=== PATIENT | male | born 1965 | race Caucasian/White ===

== ENCOUNTER 2021-03-13 13:36 | Emergency (ER) | payer MEDICAID, SELFPAY ==
[2021-03-13 15:09] VITALS: BP 139/92; PULSE 89; RESP 20; TEMP 36.6; O2SAT 98; BMI 25.1
--- NOTE | 2021-03-13 15:24 | XRR_ITS ---
PROCEDURE INFORMATION: Exam: XR Chest Exam date and time: 03/13/2021 3:24 PM Age: 55 years old Clinical indication: Cough and shortness of breath; Patient HX: Difficulty breathing and dry cough x 2 days; Additional info: SOB TECHNIQUE: Imaging protocol: XR of the chest. Views: 1 view. COMPARISON: CR Chest 2 views* [id number] 01/18/2018 10:38 AM FINDINGS: Lungs: Hyperinflated lungs. No focal consolidation. Pleural spaces: Unremarkable. No pleural effusion. No pneumothorax. Heart/Mediastinum: Unremarkable. No cardiomegaly. Bones/joints: Mild DJD of the right acromioclavicular joint. XR/XR chest 1V portable [id number] IMPRESSION: Hyperinflated lungs. Correlate for signs of obstructive lung disease. No focal consolidation.
--- NOTE | 2021-03-13 15:24 | ECG_ITS ---
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 Measurements Intervals [place] Rate: 73 P: 68 NV: 164 QRS: 66 QRSD: 122 T: 70 QT: 388 QTc: 428 Interpretive Statements SINUS RHYTHM POSSIBLE LEFT ATRIAL ENLARGEMENT [-0.1mV P WAVE IN V1/V2] PROBABLE LATERAL MYOCARDIAL INFARCTION [35 ms Q WAVE IN I/aVL/V5/V6], OF INDETERMINATE AGE Compared to ECG 01/18/2018 10:26:21 No significant changes Electronically Signed On 03-13-2021 17:03:37 CDT by Ramy David M.D. [email or web address]
[2021-03-13 15:55] LABS: Basophils # 0.1 10^3/uL (0.0-0.1); Basophils % 0.8 %; Eosinophils # 0.2 10^3/uL (0.0-0.8); Hematocrit 48.5 % (42.0-52.0); Hemoglobin 16.6 g/dL (11.7-16.6); Lymphocytes # 3.6 10^3/uL (0.8-4.8); Lymphocytes % 32.9 %; Mean Corpuscular HGB Conc 34.2 g/dL (30.0-36.0); Mean Corpuscular Hemoglobin 30.2 pg (28.0-34.0); Mean Corpuscular Volume 88.3 fL (80-94); Mean Platelet Volume 9.7 fL (7.4-10.4); Monocytes # 0.9 10^3/uL (0.2-0.9); Monocytes % 7.9 %; Neutrophils # 6.13 10^3/uL (1.8-7.7); Nucleated Red Blood Cells % 0 %; Platelet Count 281 10^3/cmm (130-400); Red Blood Count 5.49 10^6/uL (4.1-5.3); Red Cell Distribution Width 13.2 % (12.1-15.1); White Blood Count 10.9 10^3/uL (4.0-10.0)
[2021-03-13 16:13] LABS: SARS Covid-2 Antigen Negative (Negative)
[2021-03-13 16:19] LABS: Troponin(5th) Baseline 6 ng/L (0-15)
[2021-03-13 16:26] LABS: Alanine Aminotransferase 23 U/L (0-41); Albumin Level 4.6 g/dL (3.5-5.2); Alkaline Phosphatase 89 IU/L (40-130); Anion Gap 17.4 (5-19); Aspartate Amino Transferase 27 U/L (0-40); Blood Urea Nitrogen 10 mg/dL (6-20); Calcium 9.4 mg/dL (8.5-10.5); Carbon Dioxide 23 mmol/L (22-29); Chloride 96 mmol/L (98-107); Creatinine Clr Calc Pharmacy 108.8678; Globulin 2.9 g/dL (1.3-4.6); Glomerular Filtration Rate 99.6 mL/min (90-130); Glucose 89 mg/dL (65-115); NT Pro B Type Natriuretic Pept 70 pg/mL (0-125); Osmolality Calculated 275 mOsm/kg (285-295); Potassium 3.4 mmol/L (3.5-5.1); Sodium 133 mmol/L (136-145); Total Bilirubin 0.7 mg/dL (0.15-1.2); Total Protein 7.5 g/dL (6.6-8.7)
[2021-03-13] MEDS: ipratropium-albuterol 3 mL Neb INHALATION (16:35)
[2021-03-13 16:37] VITALS: PULSE 77; RESP 20; O2SAT 96
[2021-03-13 16:43] VITALS: BP 122/70; PULSE 77; PULSE 88; RESP 18; RESP 20; O2SAT 96; O2SAT 97
--- NOTE | 2021-03-13 17:17 | ED_ITS ---
HPI - SOB/Dyspnea General: Chief Complaint: Shortness of Breath/Dyspnea Stated Complaint: DIFF BREATHING, COUGH Time Seen by Provider: 03/13/21 15:21 History of Present Illness: HPI Narrative: Patient presents emergency department with complaint of shortness of breath that has been worsening over the past 2 days. Has a history of smoking for the past 45 years. Does use albuterol at home. Has had nonproductive cough. MD elicited complaint: shortness of breath and cough Pertinent past history: COPD Associated symptoms: Deny abdominal pain, chest pain, fever(s) or nausea Review of Systems Const: Denies: fever(s) ENMT: Denies: throat pain Card: Denies: chest pain Resp: Reports: dyspnea and non-productive cough GI: Denies: abdominal pain or nausea : Denies: flank pain Musc: Denies: neck pain Skin/Breast: Denies: rash Physical Exam Const: COMMON NORMALS: no acute distress, average body habitus, patient oriented x3, no limitations, healthy appearing, alert and well nourished HENMT: COMMON NORMALS: normocephalic, atraumatic, hearing grossly normal bilaterally, external ears normal, EAC's normal, TM's normal bilaterally, Normal external nose present, Normal nasal mucous membranes and turbinates present, moist oral mucous membranes, oropharynx normal, dentition normal and gingiva normal HEAD & SCALP: normocephalic and atraumatic NOSE: Normal external nose present and Normal nasal mucous membranes and turbinates present EXT ERNAL EAR: Yes external ears normal EXTERNAL AUDITORY CANAL: EAC's normal TYMPANIC MEMBRANE: TM's normal bilaterally Neck/C-Spine: COMMON NORMALS: no JVD Resp: EFFORT & INSPECTION: Yes tachypneic AUSCULTATION: wheezes Cardio: COMMON NORMALS: no JVD, regular rate, regular rhythm, S1 normal heart sound present, S2 normal heart sound present, No gallops present (Cardio), No clicks present (Cardio), No murmurs present (Cardio), No rub (Cardio) and Peripheral pulses 2+ throughout RATE: regular rate RHYTHM: regular rhythm HEART SOUNDS: S1 normal heart sound present and S2 normal heart sound present PERIPHERAL PULSES: Peripheral pulses 2+ throughout GI: COMMON NORMALS: Normal to inspection, nondistended, normoactive bowel sounds present, Soft to palpation, non-tender, No hepatosplenomegaly present, no masses and no bruits PALPATION: Yes Soft to palpation and Yes No hepatosplenomegaly present Neuro: COMMON NORMALS: patient oriented x3 SENSORIUM/ORIENTATION: Yes alert Course Vital Signs: Vital signs: Vital Signs Temperature 98 F 03/13/21 15:09 Pulse Rate 88 03/13/21 16:43 Respiratory Rate 18 03/13/21 16:43 Blood Pressure 122/70 03/13/21 16:43 Pulse Oximetry 97 03/13/21 16:43 MDM - SOB/Dyspnea MDM Narrative: Medical decision making narrative: Patient initially wheezing this resolved after breathing treatment. Given IV Solu-Medrol. Covid was negative. No significant abnormality noted on labs. Chest x-ray normal. Suspect symptoms entirely secondary to COPD exacerbation. Will discharge home with prednisone. Lab Data: Labs: Lab Results 03/13/21 03/13/21 03/13/21 Range/Units 15:45 15:45 15:45 WBC 10.9 H (4.0-10.0) 10^3/ uL RBC 5.49 H (4.1-5.3) 10^6/u L Hgb 16.6 (11.7-16.6) g/dL Hct 48.5 (42.0-52.0) % MCV 88.3 (80-94) fL MCH 30.2 (28.0-34.0) pg MCHC 34.2 (30.0-36.0) g/dL RDW 13.2 (12.1-15.1) % Plt Count 281 (130-400) 10^3/c mm MPV 9.7 (7.4-10.4) fL Neut % (Auto) 56.0 % Lymph % (Auto) 32.9 % [place] % (Auto) 7.9 % Eos % (Auto) 2.0 % Baso % (Auto) 0.8 % Neut # (Auto) 6.13 (1.8-7.7) 10^3/u L Lymph # (Auto) 3.6 (0.8-4.8) 10^3/u L [place] # (Auto) 0.9 (0.2-0.9) 10^3/u L Eos # (Auto) 0.2 (0.0-0.8) 10^3/u L Baso # (Auto) 0.1 (0.0-0.1) 10^3/u L Nucleated RBC % (a uto) 0 % Nucleated RBCs # 0.0 /100WBC Sodium 133 L (136-145) mmol/L Potassium 3.4 L (3.5-5.1) mmol/L Chloride 96 L (98-107) mmol/L Carbon Dioxide 23 (22-29) mmol/L Anion Gap 17.4 (5-19) BUN 10 (6-20) mg/dL Creatinine 0.8 (0.7-1.2) mg/dL GFR Calculation 99.6 (90-130) mL/min Glucose 89 (65-115) mg/dL Calculated Osmolal ity 275 L (285-295) mOsm/k g Calcium 9.4 (8.5-10.5) mg/dL Total Bilirubin 0.7 (0.15-1.2) mg/dL AST 27 (0-40) U/L ALT 23 (0-41) U/L Alkaline Phosphata se 89 (40-130) IU/L Troponin T Baselin e 6 (0-15) ng/L NT-Pro-B Natriuret Pep 70 (0-125) pg/mL Total Protein 7.5 (6.6-8.7) g/dL Albumin 4.6 (3.5-5.2) g/dL Globulin 2.9 (1.3-4.6) g/dL SARS-CoV-2 Ag (Rap id) (Negative) 03/13/21 Range/Units 15:45 WBC (4.0-10.0) 10^3/ uL RBC (4.1-5.3) 10^6/u L Hgb (11.7-16.6) g/dL Hct (42.0-52.0) % MCV (80-94) fL MCH (28.0-34.0) pg MCHC (30.0-36.0) g/dL RDW (12.1-15.1) % Plt Count (130-400) 10^3/c mm MPV (7.4-10.4) fL Neut % (Auto) % Lymph % (Auto) % [place] % (Auto) % Eos % (Auto) % Baso % (Auto) % Neut # (Auto) (1.8-7.7) 10^3/u L Lymph # (Auto) (0.8-4.8) 10^3/u L [place] # (Auto) (0.2-0.9) 10^3/u L Eos # (Auto) (0.0-0.8) 10^3/u L Baso # (Auto) (0.0-0.1) 10^3/u L Nucleated RBC % (a uto) % Nucleated RBCs # /100WBC Sodium (136-145) mmol/L Potassium (3.5-5.1) mmol/L Chloride (98-107) mmol/L Carbon Dioxide (22-29) mmol/L Anion Gap (5-19) BUN (6-20) mg/dL Creatinine (0.7-1.2) mg/dL GFR Calculation (90-130) mL/min Glucose (65-115) mg/dL Calculated Osmolal ity (285-295) mOsm/k g Calcium (8.5-10.5) mg/dL Total Bilirubin (0.15-1.2) mg/dL AST (0-40) U/L ALT (0-41) U/L Alkaline Phosphata se (40-130) IU/L Troponin T Baselin e (0-15) ng/L NT-Pro-B Natriuret Pep (0-125) pg/mL Total Protein (6.6-8.7) g/dL Albumin (3.5-5.2) g/dL Globulin (1.3-4.6) g/dL SARS-CoV-2 Ag (Rap id) Negative (Negative) Discharge Plan Discharge Prescriptions: No Action Combivent Respimat 20-100 mcg/actuation mist 1 puff INHALATION QID PRN (Reason: shortness of breath) Qty: 4 RF: 3 tamsulosin [Flomax] 0.4 mg capsule 0.4 mg PO DAILY Qty: 30 RF: 3 mesalamine [Lialda] 1.2 gram tablet,delayed release (DR/EC) 1.2 gm PO QDAY 30 Days Qty: 30 RF: 0 Coding Level of Care Code ED Hospital Admissions Officer for Chg Fwd
[2021-03-13 17:41] VITALS: BP 122/70; PULSE 88; RESP 18; O2SAT 97
== END 2021-03-13 17:42 | disposition home or self-care (01) ==
PROVIDERS: Emergency Provider Emergency Medicine
DX: R06.02 Shortness of breath (principal); Z20.822 Contact with and (suspected) exposure to COVID-19
CPT/HCPCS: 71045; 80053; 83880; 84484; 85025; 87426; 93005; 94640; 96374; 99284; J2930

== ENCOUNTER 2022-11-17 12:26 | Outpatient (CLI) | payer MEDICAID, SELFPAY ==
--- NOTE | 2022-11-17 12:35 | XR_ITS ---
WS: [id number] XR shoulder LT min 2V* [id number] REASON FOR EXAM: PAIN IN LEFT SHOULDER FINDINGS: No acute fracture or focal bone lesion. Deformity of the distal clavicle compatible with old healed fracture. Mild osteophytosis of the acromioclavicular joint. There may be moderate narrowing of the inferior glenohumeral joint space. There is a deformity of the inferior glenoid which may be an old healed fracture. XR/XR shoulder LT min 2V* [id number] IMPRESSION: No acute bone or joint abnormality. Findings of old healed fracture of the distal clavicle and possibly of the ken oid. Better view of the glenohumeral joint is needed, posterior oblique with glenoid in profile.
== END 2022-11-17 12:27 | disposition home or self-care (01) ==
LOC: RAD 12:29
PROVIDERS: PCP Nurse Practitioner Family; Visit Provider Nurse Practitioner Family
DX: M25.512 Pain in left shoulder (principal)
CPT/HCPCS: 73030

== ENCOUNTER 2022-12-20 06:18 | Outpatient (CLI) | payer MEDICAID, SELFPAY ==
--- NOTE | 2022-12-20 | CT_ITS ---
WS: [id number] CT LEFT SHOULDER NONCONTRAST. HISTORY: pain in left shoulder, pain for 6 weeks. No surgery. Technique: All [facility] scans at [facility] use at least one of these dose optimization techniques: automated exposure control; mA and/or kV adjustment per patient size (includes targeted exams where dose is matched to clinical indication); or iterative reconstruction. DLP: 315.29 mGy.cm COMPARISON: Radiographs 11/17/2022. Moderate AC joint arthritis. Mild hypertrophic bone formation. No obvious dislocation is identified. No significant joint effusion. Glenohumeral joint is normally aligned. No glenoid fracture or humeral head fracture. No significant atrophy of the rotator cuff muscles. Age indeterminate but remote anterior LEFT fourth rib fracture. Micronodules in the LEFT upper lobe. CT/CT shoulder LT wo con* [id number] IMPRESSION: 1. Moderate AC joint arthritis. No fractures identified. 2. Normal glenohumeral joint alignment. No humeral head fracture. 3. Remote, healed anterior LEFT fourth fourth rib fracture.
== END 2022-12-20 06:19 | disposition home or self-care (01) ==
LOC: RAD 06:20
PROVIDERS: PCP Nurse Practitioner Family; Visit Provider Nurse Practitioner Family
DX: M25.512 Pain in left shoulder (principal); M19.012 Primary osteoarthritis, left shoulder
CPT/HCPCS: 73200

== ENCOUNTER → 2024-12-11 09:41 | Outpatient (BNVA) | payer MEDICAID, SELFPAY | PROVIDERS: PCP Nurse Practitioner Family; Visit Provider Podiatrist Foot & Ankle Surgery | DX: L60.0 Ingrowing nail (principal); L60.8 Other nail disorders | CPT/HCPCS: 11750; 99203; J9999 ==

== ENCOUNTER → 2024-12-25 10:08 | Outpatient (BNVA) | payer MEDICAID, SELFPAY | PROVIDERS: PCP Nurse Practitioner Family; Visit Provider Podiatrist Foot & Ankle Surgery | DX: Z98.890 Other specified postprocedural states (principal) | CPT/HCPCS: 99213 ==

== ENCOUNTER 2025-01-19 09:53 | Emergency (ER) | payer MEDICAID, SELFPAY ==
[2025-01-19 10:00] VITALS: BP 162/72; PULSE 108; TEMP 36.6; O2SAT 96; BMI 23.6
--- NOTE | 2025-01-19 10:56 | XRR_ITS ---
PROCEDURE INFORMATION: Exam: XR Left Hip Exam date and time: 01/19/2025 11:17 AM Age: 59 years old Clinical indication: Hip pain; Left hip TECHNIQUE: Imaging protocol: Radiologic exam of the left hip. Views: 2 or 3 views hip with pelvis when performed. COMPARISON: CR XR lumbar spine f/e only [id number] 04/25/2018 12:21 PM FINDINGS: Bones/joints: Unremarkable. No acute fracture. Soft tissues: Unremarkable. XR/XR hip LT 2-3V wo/w pel* [id number] IMPRESSION: No acute findings.
--- NOTE | 2025-01-19 11:19 | W.ED.EXTPRO ---
HPI - Extremity Problem General: Chief complaint: Extremity Injury, Lower Stated complaint: hip pain Time Seen by Provider: 01/19/25 11:10 Source: patient Mode of arrival: ambulatory Limitations: no limitations History of Present Illness: 59-year-old male states that he has been having left hip pain going on for 3 days. He states the pains been in the left hip radiates down his left leg is much worse with ambulation. He denies any injuries denies any history of hip issues. He denies any fevers. Associated symptoms: Deny chest pain, fever(s) or rash Related Data Home Medications ?Medication ?Instructions ?Recorded ?Confirmed spironolactone 25 1 tab PO DAILY 04/03/24 01/19/25 mg-hydrochlorothiazide 25 mg tablet sulfasalazine 500 mg tablet 500 mg PO TID 04/03/24 01/19/25 fluticasone 500 mcg-salmeterol 50 1 inh inhalation BID 01/19/25 01/19/25 mcg/dose blistr powdr for inhalation (Advair Diskus) Previous Rx's ?Medication ?Instructions ?Recorded tamsulosin 0.4 mg capsule (Flomax) 0.4 mg PO DAILY #30 caps 11/17/19 mesalamine 1.2 gram tablet,delayed 1.2 gm PO QDAY 30 days #30 tabs 05/18/20 release (Lialda) silver sulfadiazine 1 % topical 1 applic topical BID #50 grams 12/11/24 cream (Silvadene) methocarbamol 750 mg tablet 750 mg PO Q6H PRN spasms #20 tabs 01/19/25 naproxen 500 mg tablet (Naprosyn) 500 mg PO BID PRN pain #20 tabs 01/19/25 Allergies Allergy/AdvReac Type Severity Reaction Status Date / Time gabapentin Allergy Unknown Verified 01/19/25 10:06 tramadol Allergy Unknown Verified 01/19/25 10:06 Review of Systems Const: Denies: fever(s), chills, body aches or change in appetite ENMT: Denies: throat pain or dental pain Card: Denies: chest pain Resp: Denies: dyspnea GI: Denies: abdominal pain, nausea, vomiting or diarrhea Musc: Reports: extremity pain; Denies: neck pain or back pain Skin/Breast: Denies: rash Neuro: Denies: headache(s) PFSH ED PFSH: Social History Smoking and tobacco/nicotine status: current every day tobacco/nicotine user Physical Exam Const: COMMON NORMALS: no acute distress, patient oriented x3 and healthy appearing HENMT: COMMON NORMALS: normocephalic and atraumatic HEAD & SCALP: normocephalic and atraumatic Neck/C-Spine: COMMON NORMALS: full ROM and supple Chest: COMMONS NORMALS: normal inspection of the chest Resp: COMMON NORMALS: normal respiratory effort Cardio: COMMON NORMALS: regular rate RATE: regular rate Extremity: NARRATIVE EXTREMITY EXAM: Tenderness to left hip does have pain range of motion distal pulses sensation intact Neuro: COMMON NORMALS: patient oriented x3, moves all extremities and no focal motor deficits Psych: COMMON NORMALS: mental status grossly normal, Normal thought process present and cooperative THOUGHT PROCESS: Normal thought process present Skin: COMMON NORMALS: no rashes or lesions noted and no wounds GENERAL SKIN EXAM: no rashes or lesions noted Course Vital Signs: Vital signs: Vital Signs Temperature 97.8 F 01/19/25 10:00 Pulse Rate 87 01/19/25 11:34 Respiratory Rate 18 01/19/25 11:48 Blood Pressure 162/72 01/19/25 10:00 Pulse Oximetry 91 01/19/25 11:34 Oxygen Delivery Me thod Room Air 01/19/25 10:00 MDM - Extremity (Nontraumatic) Medical Decision Making Patient presents for left hip pain likely sciatica x-ray shows no fractures he is ambulatory here he feels improved after pain meds did give him Decadron we will place him on Naprosyn Robaxin he is to follow-up with PCP and return if worsening. Medical Records I reviewed the patient's medical records. XR interpretation done by ED provider, pending radiology final review ED provider radiology interpretation(s): xr hip l hip: no acute abnormality Discharge Plan Discharge Patient Disposition: Home Clinical Impression: Hip pain, left Condition: Stable Prescriptions: New methocarbamol 750 mg tablet 750 mg PO Q6H PRN (Reason: spasms) Qty: 20 0RF naproxen [Naprosyn] 500 mg tablet 500 mg PO BID PRN (Reason: pain) Qty: 20 0RF No Action sulfasalazine 500 mg tablet 500 mg PO TID spironolacton-hydrochlorothiaz 25-25 mg tablet 1 tab PO DAILY silver sulfadiazine [Silvadene] 1 % cream 1 applic topical BID Qty: 50 0RF Rx Instructions: apply a 1.5 mm thickness tamsulosin [Flomax] 0.4 mg capsule 0.4 mg PO DAILY Qty: 30 3RF mesalamine [Lialda] 1.2 gram tablet,delayed release (DR/EC) 1.2 gm PO QDAY 30 Days Qty: 30 0RF fluticasone propion-salmeterol [Advair Diskus] 500-50 mcg/dose blister with device 1 inh INHALATION BID Discharge Orders: Discharge ED (Routine); Ordered 01/19/25 Ordered By: All Barry Referrals: Forrest Rothman MD [Primary Care Provider, Internal Medicine] Discharge Diet: Advance as tolerated Discharge Activity: Resume usual activity Patient Instructions: Hip Pain (ED) Print Language: Mongolian Coding Level of Care Code ED Epidemiology Investigator for Maribell Hinotn
[2025-01-19 11:34] VITALS: PULSE 87; O2SAT 91
[2025-01-19 11:48] VITALS: RESP 18
[2025-01-19] MEDS: morphine 4 mg/mL SDV 1 mL IM (11:48)
[2025-01-19] MEDS: dexamethasone 10 mg/mL INJ IM (11:48)
[2025-01-19 12:47] VITALS: BP 151/96; PULSE 76; RESP 16; O2SAT 92
== END 2025-01-19 12:49 | disposition home or self-care (01) ==
PROVIDERS: Emergency Provider Emergency Medicine; PCP Internal Medicine
DX: M25.552 Pain in left hip (principal); Z79.899 Other long term (current) drug therapy; Z88.5 Allergy status to narcotic agent; Z88.8 Allergy status to other drugs, medicaments and biological substances; F17.200 Nicotine dependence, unspecified, uncomplicated
CPT/HCPCS: 73502; 96372; 99284; J1100; J2270